=== PATIENT | female | born 1925 | race Caucasian/White ===

== ENCOUNTER 2016-08-20 13:02 | Emergency (ER) | payer MEDICARE ==
[~2016-08-20 13:02] MED LIST: Sodium Chloride 0.9% 500 ML BAG ONE
--- NOTE | 2016-08-20 13:57 | RAD ---
CHEST ONE VIEW: History: Altered mental status. Comparison: 07-21-14 FINDINGS: There are no consolidation, pneumothorax, or effusions. Heart size is at the upper limits of normal. Old right posterior likely 10th rib fracture. There is loss of normal right subacromial space. There are calcifications over the left rotator cuff. IMPRESSION: 1. Cardiomegaly, otherwise no acute intrathoracic abnormality. 2. Evidence of right rotator cuff calcification. POS: [facility]
[2016-08-20 14:15] LABS: Bilirubin Negative (Negative); Blood, Urine Trace (Negative); Clarity Clear (Clear); Glucose, Urine (Dipstick) Negative (Negative); Leukocyte Small (Negative); Nitrite Negative (Negative); Protein, Urine (Dipstick) 100 mg/dL (Neg-Trace); Specific Gravity, Urine 1.025 (1.005-1.030)
[2016-08-20 14:29] LABS: Hemoglobin 15.7 g/dL (12.0-16.0); Mean Corpuscular Volume 96.9 fL (81.0-99.0); Mean Platelet Volume 6.8 fL (7.4-10.4); Platelet Count 225 thou/uL (130-400); RBC Distribution Width 13.2 % (11.5-14.5); Red Blood Cell (RBC) Count 5.06 mill/uL (4.20-5.40); White Blood Cell (WBC) Count 7.4 thou/uL (4.8-10.8)
[2016-08-20 14:30] LABS: ALT (SGPT) 27 U/L (8-55); AST (SGOT) 25 U/L (5-34); Albumin 3.8 g/dL (3.4-4.8); Alkaline Phosphatase 112 U/L (40-150); Anion Gap 16 mmol/L (10-20); BUN (Urea Nitrogen) 25 mg/dL (9.8-20.1); Bilirubin, Total 0.5 mg/dL (0.2-1.2); Calc. Creatinine Clearance 0 mL/min (70-130); Calcium 10.1 mg/dL (7.8-10.44); Carbon Dioxide 23 mmol/L (23-31); Chloride 108 mmol/L (98-107); Estimated GFR-MDRD 36; Globulin 3.3 g/dL (2.4-3.5); Glucose 105 mg/dL (83-110); Manual Diff?? YES; Potassium 4.7 mmol/L (3.5-5.1); Protein, Total 7.1 g/dL (6.0-8.3); Sodium 142 mmol/L (136-145)
--- NOTE | 2016-08-20 14:31 | CT ---
CT BRAIN WITHOUT CONTRAST: Date: 08/20/16 HISTORY: Altered mental status. COMPARISON: CT brain dated 06/19/14. FINDINGS: No acute territorial infarct or hemorrhage. No midline shift or mass effect. There is extensive atro phy of the cerebrum with ex vacuo dilatation of the ventricular systems and extra-axial CSF spaces. 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 The calvarium is intact. Paranasal sinuses and mastoids are clear. IMPRESSION: No acute intracranial abnormality. POS: [facility]
[2016-08-20 14:32] LABS: CKMB 1.4 ng/mL (0-6.6); Troponin I Less than 0.010 ng/mL (< 0.028)
[2016-08-20 14:33] LABS: Anisocytosis SLIGHT = 6-15 cells (100X) (0-5/hpf); Band 3 % (5-11); Eosinophils 3 % (0-10); Lymphocytes 29 % (21-51); Monocytes 10 % (0-10); Neutrophil 55 % (42-75); PLT Morphology Comment Appears Adequate
[2016-08-20 14:36] LABS: Bacteria/HPF 1+ HPF (None Seen); RBC/HPF 0-3 HPF (0-3); Squamous Epithelial 0-3 HPF (0-3)
== END 2016-08-20 15:58 ==
LOC: MADERS 13:02
DX: E86.0 Dehydration (principal); N39.0 Urinary tract infection, site not specified; K21.9 Gastro-esophageal reflux disease without esophagitis; I48.91 Unspecified atrial fibrillation; F03.90 Unspecified dementia, unspecified severity, without behavioral disturbance, psychotic disturbance, mood disturbance, and anxiety; I25.10 Atherosclerotic heart disease of native coronary artery without angina pectoris; I13.0 Hypertensive heart and chronic kidney disease with heart failure and stage 1 through stage 4 chronic kidney disease, or unspecified chronic kidney disease; I50.9 Heart failure, unspecified; N18.3 Chronic kidney disease, stage 3 (moderate); Z79.899 Other long term (current) drug therapy; Z79.82 Long term (current) use of aspirin
CPT/HCPCS: 51701; 70450; 71010; 80053; 81003; 81015; 82553; 84484; 85025; 93005; 96360; 96361; A4353; J7050